=== PATIENT | female | born 1960 | race Caucasian/White ===

== ENCOUNTER 2019-12-03 13:38 | Outpatient (CLI) | payer BC | END 2019-12-03 19:00 | disposition home or self-care (01) | LOC: SMA 13:38 | PROVIDERS: ATTEND Obstetrics & Gynecology Gynecology | DX: Z12.31 Encounter for screening mammogram for malignant neoplasm of breast (principal); N64.89 Other specified disorders of breast | CPT/HCPCS: 77067; J7120 ==

== ENCOUNTER 2020-02-28 10:22 | Outpatient (CLI) | payer BC | END 2020-02-28 20:06 | disposition home or self-care (01) | LOC: SMA 10:22 | PROVIDERS: ATTEND Obstetrics & Gynecology Gynecology | DX: R92.2 Inconclusive mammogram (principal); R92.8 Other abnormal and inconclusive findings on diagnostic imaging of breast | CPT/HCPCS: 76641; 77065 ==